=== PATIENT | male | born 1945 | race African-American/Black ===

== ENCOUNTER 2016-06-01 21:43 | Inpatient (IN) | payer MEDICARE ==
[~2016-06-01] VITALS: Ht 170.2 cm; Wt 71.4 kg
[~2016-06-01 21:43] MED LIST: CIPRO XR500 M2 PO; CIPROFLOXACN250 MG PO; CIPROFLOXACN500 MG PO; DETROL LA4 MG PO; DILAUDID 2MG2 MG/TA1 PO; DILAUDID2 MG PO; FLOMAX0.4 M1 PO; GENTAMICIN0.3 % OP; LORTAB 5 OR; MILK OF MAG30 ML/UDC PO; [UNRECOGNIZED DRUG - OTHER]
--- NOTE | 2016-06-01 22:12 | NUR ---
PT AMBULATED TO RM 9 W/ STEADY GAIT.
[2016-06-01] MEDS ORDERED: PANTOPRAZOLE SO40 MG PO (22:21)
[2016-06-01] MEDS ORDERED: AUGMENTIN875TAB PO (22:22)
[2016-06-01] MEDS ORDERED: IBUPROFEN600 MG PO (22:23)
--- NOTE | 2016-06-01 22:45 | NUR ---
PT STATES HE WENT TO DR ESTRADA'S OFFICE YESTERDAY AND WAS GIVEN A SHOT FOR PUS IN HIS THROAT AND THROAT PAIN. STATES IT WAS AN ANTIBIOTIC SHOT.
--- NOTE | 2016-06-01 23:06 | NUR ---
PT MEDICATED FOR C/O ACID REFLUX ORDERED.
[2016-06-01] MEDS ORDERED: BENADRYL 50MG C50 MG PO (23:07)
--- NOTE | 2016-06-02 00:01 | NUR ---
CARDIAC WORKUP INITIATED. PATIENT HAS NO COMPLAINTS AT THIS TIME.
[2016-06-02 00:53] LABS: HEMATOCRIT 42.9 % (39.0-50.0); HEMOGLOBIN 14.2 g/dl (14.0-18.0); IMMATURE GRANULOCYTES 0.5 % (0.0-1.0); MEAN CELL VOLUME 86.3 fL CALC (80.0-100.0); MEAN CORPUSCULAR HGB 28.6 pG CALC (26.0-32.0); MEAN CORPUSCULAR HGB CONC 33.1 g/L CALC (32.0-36.0); NEUT# 7.96 thou/uL (1.82-7.42); RED BLOOD COUNT 4.97 mill/uL (4.70-6.10); RED CELL DISTRI WIDTH 13.8 % (11.5-15.5)
[2016-06-02 01:13] LABS: ALBUMIN 4.1 g/dL (3.2-5.0); ALKALINE PHOSPHATASE 78 u/l (38-126); AMYLASE 97 u/l (30-110); ANION GAP 17 (6-22 (CALC)); BILIRUBIN, TOTAL 0.7 mg/dL (0.0-1.4); BUN 13 mg/dL (8-23); BUN/CREATININE RATIO 10 (12-20 (CALC)); CALCIUM 9.2 mg/dL (8.4-10.2); CARBON DIOXIDE 27 mmol/l (22-30); CHLORIDE 97 mmol/l (95-108); CREATININE 1.3 mg/dL (0.7-1.3); GFR 55 ML/MIN (>=60 (CALC)); GFR FOR AFR.AMER. > 60 ML/MIN (>=60 (CALC)); GLUCOSE 99 mg/dL (82-115); LIPASE 64 u/l (23-300); POTASSIUM 4.1 mmol/l (3.5-5.1); SGOT/AST 34 u/l (19-48); SGPT/ALT 37 u/l (11-66); SODIUM 138 mmol/l (137-146); TOTAL PROTEIN 7.7 g/dL (6.3-8.2)
[2016-06-02 01:24] LABS: ACT PARTIAL THROMBO TIME 31.5 SECONDS (20.0-32.5); MYOGLOBIN 104 ng/mL (0 - 121); PROTHROMBIN TIME 10.8 SECONDS (9.0-12.5)
--- NOTE | 2016-06-02 02:12 | NUR ---
SLEEPING SOUNDLY. VSS. CM NSR WITH OCCASIONAL UNIFOCAL VPC. 1ST TROPONIN NEGATIVE.
--- NOTE | 2016-06-02 04:00 | NUR ---
PATIENT AWARE THAT HE IS BEING ADMITTED. EXPLAINED THAT HE IS GOING TO THE ICU AN OVERFLOW PATIENT
--- NOTE | 2016-06-02 04:12 | NUR ---
REPORT GIVEN TO [facility] ON ICU. TRANSPORTED TO ICU ON [facility] WITH CM, PATENT IV LINE IN THE LEFT AC, BY KARLO LUNA.
[2016-06-02 04:20] VITALS: BP 118/65
--- NOTE | 2016-06-02 04:20 | NUR ---
male pt received to ICU bed 4 (MS winn) in stable condition; ambulatory to scale then bed with weak/unsteady gait; admission assessment completed at this time; pt c/c rash and epigastric pain; deny n/v/ diaphoresis; pt also complaints of throat pain; pt states he started on motrin and "acid reflux" medication when rash started; pt also noted to have started Augmentin 06/01/16; a&o X3; denies pain/chest pain; resp even and unlabored; lungs clear; ra; skin color wnl; hr reg; strong pulses; no edema noted; sr on monitor; bilat knee high radha hose placed; abd soft with bs present; pt states last bm 06/01/16; admits to decreased appetite; pt voiding clear shagufta urine without complication; ua specimen obtained; #20 in lac flushed and patent; no redness or edema noted at site; generalized raised rash noted to upper body/arms/back/torso; pt denies itching; temp current 103.4; pt noted with shiver/complaints of being cold; redness noted to post throat; airway patent; plan of care explained; pt oriented to bed and call light system; will continue to monitor closely
--- NOTE | 2016-06-02 05:05 | NUR ---
medictaed with tylenol for temp of 103.4; po fluids encouraged; spouse at bedside; will continue to monitor
[2016-06-02 05:57] LABS: URINE BILIRUBIN - DIPSTICK NEGATIVE (NEGATIVE); URINE BLOOD DIPSTICK LARGE (NEGATIVE); URINE CLARITY CLEAR; URINE COLOR YELLOW; URINE GLUCOSE - DIPSTICK NEGATIVE (NEGATIVE); URINE KETONE NEGATIVE (NEGATIVE); URINE LEUK ESTERASE NEGATIVE (NEGATIVE); URINE NITRITE - DIPSTICK NEGATIVE (Negative); URINE PH 5.5 (4.5-8.0); URINE PROTEIN - DIPSTICK NEGATIVE (NEG-TRACE); URINE UROBILINOGEN - DIPSTICK 0.2 E.U./dL (0.2)
--- NOTE | 2016-06-02 06:02 | NUR ---
resting in bed with eyes closed; spose remains at bedside; no distress noted; iv intact; sr on monitor; bed in lowest position; will continue to monitor
--- NOTE | 2016-06-02 06:20 | NUR ---
Dr Rowan informed of current temp of 103.1; orders received to place ice packs; this database report writer informed , pt states he started Protonix and Motrin on Tue, pt states rash started after starting Protonix and Motrin. pt received an injection on Tue at Dr Timmons's office (pt unsure of name) and started Augmentin on Tue;
[2016-06-02 06:23] LABS: URINE BACTERIA RARE hpf; URINE MUCUS FEW hpf (NONE-FEW)
--- NOTE | 2016-06-02 07:20 | NUR ---
PT ALERT AND ORIENTED, RESTING IN BED, AM ASSESSMENT COMPLETED, SEE INTERVENTIONS, PT COMPLAINTS OF PRICKLY FEELING TO BACK RELATED TO RASH THAT STARTED ON TUESDAY AFTER NEW MEDICATIONS, SEE HISTORY. DENIES N/V BUT STATES APPETITE FAIRLY POOR FOR LAST FEW DAYS, AT BEDSIDE, TELE READING SR IN THE 70'S WITH PVC'S PT REMAINS FEBRIEL BUT IMPROVED CURRENTLY TEMP IS 100.7, CALL [facility] WITHIN REACH, SAFEY MEASURES REINFORCED, URINAL AT BEDSIDE, WILL CONTINUE TO MONITOR, ENCOUARGED TO CALLFOR ANY NEEDED ASSISTANCE
[2016-06-02 08:00] VITALS: BP 96/56
--- NOTE | 2016-06-02 08:30 | NUR ---
PT REMAINS RESTING IN BED, OFFERS NO NEW COMPLAINTS TEMP REMAINS 100.7, REMAINS AT BEDSIDE, WILL CONTINUE TO MONITOR,
--- NOTE | 2016-06-02 08:56 | NUR ---
PT ATE MINIMAL AMOUNT OF AM MEAL, CALL [facility] WITHIN REACH, WILL CONTINUE TO MONITOR.
--- NOTE | 2016-06-02 10:34 | NUR ---
PT CALLED THIS NURSE ASKING QUESTIONS ABOUT CT SCAN THAT WAS SCHEDULED OP FOR THIS AM (PRIOR TO BEING ADMITTED) PT STATES THAT HE HAS "KNOTS" AT BASE OF EACH EAR THAT ARE SORE TO TOUCH AND TENDER AND HAVE CRISTAL BOTHERING HIM SINCE LAST WEEK (WHICH IS WHAT STARTED ALL OF THE DOCTOR VISITS MEDICATIONS AND SUBSEQUENT QUESTIONABLE ALLERGIC REACTION TO MEDICATIONS PROVIDED), HE STATES WANTED TO DO A CT SCAN WITH CONCERNS OF STONES IN HIS PAROTID GLANDS NOTIFIED OF ALL OF THIS AND CT ORDERED, PT AWARE AND WILL CONTINUE TO MONITOR.
--- NOTE | 2016-06-02 10:51 | NUR ---
PT RESTING IN BED, CALL FROM RADIOLOGY FOR CT SCAN. AWAITING TRANSPORT
--- NOTE | 2016-06-02 11:05 | NUR ---
PT TO CT VIA WHEELCHAIR
[2016-06-02 11:28] VITALS: BP 117/58
--- NOTE | 2016-06-02 11:32 | NUR ---
PT BACK FROM CT BACK TO BED, TYMPANIC TEMP NOW 104.1 , ICE PACKS APPLIED TO AXIALLRY AND ALBERTO WET CLOTH TO FORHEAD, PT HR REMAINS STABLE AT 87, BP 117/58 ALSO MEDICATED WITH TYLENOL ORDERED, WILL MONITOR CLOSELY
--- NOTE | 2016-06-02 12:05 | NUR ---
PT RESTING IN BED, REMAINS AT BEDSIDE, IVF CONTINUE AT PRESCRIBED RATE, SET UP ASSIST PROVIDED FOR AFTERNOON MEAL EARLIER ORDERED, WILL CONTINUE TO MONITOR. CALL [facility] WITHIN REACH
--- NOTE | 2016-06-02 12:31 | NUR ---
TEMP CURRENTLY 101.8, ICE PACKS REMAIN IN PLACE, VISITORS AT BEDSIDE, WILL CONTINUE TO MONITOR.
--- NOTE | 2016-06-02 12:36 | NUR ---
MEDICATED WITH BENADRYL FOR COMPLAINTS OF PRICKLY/TINGLING FEELING TO BACK, NASO SWAB DONE FOR INFLUENZA SCREENING, PT TOELRATED WELL WILL CONTINUE TO MONITOR
[2016-06-02 13:01] LABS: INFLUENZA A NONE DETECTED (NONE DETECT); INFLUENZA B NONE DETECTED (NONE DETECT)
--- NOTE | 2016-06-02 13:17 | NUR ---
S: MACARIO MEJIA is a 70 M who presents with fever, rash, and chest pain All medications in patient's chart were reviewed. O: VS: BP 117/58, P 88, RR 27 ,T 101.8, Tmax 104.3 W 71.35kg, HT 67", Scr= 1.3,CrCl= ~53 ml/min A: Blood cultures are pending Group A Strep, Influenza A & B and Monoscreen are all negative. P: Patient has been started on aztreonam 1g IV Q8H, Levofloxacin 750mg IV Q24H and [facility], pharmacy to dose. Start Vancomycin 750mg IV Q12H @ 0400,1600. Vancomycin trough to be drawn on 06/04/16 @ 0330, 30 minutes prior to the fourth dose. Vancomycin goal trough is between 10-20 mcg/ml. Pharmacy will follow and or advise on antibiotics use as needed. Thank you for the consult. Rosa Isela Willett, CrystalD
--- NOTE | 2016-06-02 13:29 | NUR ---
PT HAS 3 ABT ORDERED, PT EDUCATED REGARDING EACH ONE INCLDUING REASON FOR ADMINISTRTAION, EXPECTATIONS AND POSSIBLE SIDE EFFECTS, PT AND SPOUSE VERBALIZE UNDERSTANDING
--- NOTE | 2016-06-02 15:14 | NUR ---
TEMP 97.8, REMAINS AT BEDSIDE, OFFERS NO NEW COMPLAINTS, TOLERATED LEVAQUIN W/O INCIDENT, CALL [facility] WITHIN REACH
[2016-06-02 16:00] VITALS: BP 97/52
--- NOTE | 2016-06-02 16:45 | NUR ---
PT DIAPHORTECI RELATED TO FEVER BREAKING, PT OOB TO CHAIR AT BEDSIDE, COMPLETE LINEN CHANGE COMPLETED, PT BATHED SELF WHILE SITTING UP WITH MIN ASSIST, PT TOLERATED ACTIVITY WELL. CALL [facility] WITHIN REACH.
--- NOTE | 2016-06-02 17:38 | NUR ---
PT REMAINS SITTING UP IN RECLINER SET UP ASSIST PROVIDED FOR PM MEAL, REMAINS AT BEDSIDE, CALL [facility] WITHIN REACH, WILL CONTINUE TO MONITOR.
--- NOTE | 2016-06-02 17:42 | NUR ---
PT REMAINS AFEBRILE, TEMP 97.6, WILL CONTINUE TO MONITOR
--- NOTE | 2016-06-02 18:11 | NUR ---
VISITORS AT BEDSIDE, OFFERS NO NEW COMPLAINTS, SAFETY MEASURES REINFORCED, WILL CONTINUE TO MONITOR.
--- NOTE | 2016-06-02 19:00 | NUR ---
REPORT FROM CHERYL MON. ASSUMED PT. CARE.
[2016-06-02 20:00] VITALS: BP 105/63
--- NOTE | 2016-06-02 20:00 | NUR ---
PT. FOUND SITTING IN CHAIR AT BEDSIDE. ASSISTED BACK TO BED PER HIS REQUEST. REMAINS AFEBRILE AT THIS TIME 97.1. AWAKE, ALERT, ORIENTED. SPOUSE AT BEDSIDE. RESPS EVEN AND UNLABORED. SKIN WARM AND DRY. DENIES COMPLAINTS OF PAIN OR NEED. VSS.
--- NOTE | 2016-06-02 21:57 | NUR ---
PT. RESTING IN BED WITH EYES CLOSED. GOWN CHANGED PT. HAD SOME DIFFICULTY WITH URINAL. PT. DENIES COMPLAINTS OF PAIN OR NEED. VSS. WILL CONTINUE TO MONITOR.
--- NOTE | 2016-06-02 23:30 | NUR ---
PT. RESTING IN BED WITH EYES CLOSED. SPOUSE REMAINS AT BEDSIDE AT THIS TIME. RESPS EVEN AND UNLABORED. NO DISTRESS NOTED.
[2016-06-03] VITALS: BP 121/73
--- NOTE | 2016-06-03 00:45 | NUR ---
PT. PROVIDED WITH ANOTHER BLANKET PER HIS REQUEST. PT. IS AWAKE, ALERT, ORIENTED X 3. SKIN WARM AND DRY. AFEBRILE AT THIS TIME. URINAL EMPTIED OF APPROX 300 CC ESTEVAN COLORED URINE. VSS.
--- NOTE | 2016-06-03 02:35 | NUR ---
PT. RESTING IN BED WITH EYES CLOSED. DENIES COMPLAINTS OR NEEDS. RESPS ARE EVEN AND UNLBAORED. PT. SPOUSE REMAINS AT BEDSIDE AT THIS TIME. VSS.
--- NOTE | 2016-06-03 03:55 | NUR ---
LAB AT BEDSIDE TO DRAW PT. PT. REMAINS AFEBRILE AT THIS TIME. BP 100/50. STABLE. DENIES COMPLAINTS OF PAIN OR NEED. RESPS EVEN AND UNLABORED. HR STABLE AT 65. SPOUSE REMAINS AT BEDSIDE AT THIS TIME.
[2016-06-03 04:00] VITALS: BP 100/56
[2016-06-03 04:21] LABS: HEMATOCRIT 37.6 % (39.0-50.0); HEMOGLOBIN 12.7 g/dl (14.0-18.0); IMMATURE GRANULOCYTES 0.8 % (0.0-1.0); MEAN CELL VOLUME 85.5 fL CALC (80.0-100.0); MEAN CORPUSCULAR HGB 28.9 pG CALC (26.0-32.0); MEAN CORPUSCULAR HGB CONC 33.8 g/L CALC (32.0-36.0); NEUT# 11.62 thou/uL (1.82-7.42); RED BLOOD COUNT 4.4 mill/uL (4.70-6.10); RED CELL DISTRI WIDTH 14.1 % (11.5-15.5)
[2016-06-03 04:33] LABS: ANION GAP 13 (6-22 (CALC)); BUN 18 mg/dL (8-23); BUN/CREATININE RATIO 22 (12-20 (CALC)); CALCIUM 8.7 mg/dL (8.4-10.2); CARBON DIOXIDE 25 mmol/l (22-30); CHLORIDE 106 mmol/l (95-108); CREATININE 0.8 mg/dL (0.7-1.3); GFR > 60 ML/MIN (>=60 (CALC)); GFR FOR AFR.AMER. > 60 ML/MIN (>=60 (CALC)); GLUCOSE 130 mg/dL (82-115); POTASSIUM 4.3 mmol/l (3.5-5.1); SODIUM 139 mmol/l (137-146)
--- NOTE | 2016-06-03 05:27 | NUR ---
IV VANCO CONTINUES TO INFUSE WITHOUT SX OF INFILTRATION OR EXTRAVASATION. RESTING IN BED WITH EYES CLOSED. DENIES COMPLAINTS OF PAIN OR NEED. VSS. RESPS EVEN AND UNLABORED. SKIN WARM AND DRY. CALL LIGHT WITHIN REACH.
--- NOTE | 2016-06-03 07:15 | NUR ---
PT ALERT AND ORIENTED, RESTING IN BED, AM ASSESSMENT COMPLETED, SEE INTERVENTIONS, PT STATES PRICKLY FEELING TO BACK RELATED TO RASH IMPROVED OVER YESTERDAY, STATES INGENEREAL FEELING MUCH BETTER THAN YESTERDAY, REMAINS AFEBRILE (97.6) WITH VS STABLE, TELE READING SR IN THE 60-70'S, CALL [facility] WITHIN REACH, SAFEY MEASURES REINFORCED, URINAL AT BEDSIDE, WILL CONTINUE TO MONITOR, ENCOURAGED TO CALL FOR ANY NEEDED ASSISTANCE, SPOUSE REMAINS AT BEDSIDE, PLAN OF CARE DISCUSSED AND ALL QUESTIONS ANSWERED.
[2016-06-03 07:35] VITALS: BP 120/71
--- NOTE | 2016-06-03 07:40 | NUR ---
SET UP ASSIST PROVIDED FOR AM SANYA, REMAINS AT BEDSIDE, PT VOIDS ADEQUATE AMOUNTS CLEAR ESTEVAN URINE, WILL CONTINUE TO MONITOR.
--- NOTE | 2016-06-03 09:37 | NUR ---
PT REMAINS RESTING IN BED, IVF CONTINUE AT PRESCRIBED RATE, OFFERS NO NEW COMPLAINTS, CALL MOOKIE JUNIOR, REMAINS AT BEDSIDE, WILL CONTINUT TO MONITOR.
--- NOTE | 2016-06-03 09:55 | NUR ---
IN TO SEE PATIENT
--- NOTE | 2016-06-03 10:53 | NUR ---
VISITORS AT BEDSIDE, PT REMAINS AFEBRILE & RESTING IN BED, IVF CONTINUE, CALL [facility] WITHIN REACH,
--- NOTE | 2016-06-03 12:17 | NUR ---
PT SET UP ASSIST PROVIDED FOR AFTERNOON MEAL EARLIER, TOLERATING DIET WELL, REPOSITIONS SELF IN BED FOR COMFORT WITH NO DISTRESS NOTED, VS REMAIN STABEL AND PT REMAINS AFEBRILE, WILL CONTINUE TO MONITOR
[2016-06-03 12:18] VITALS: BP 116/64
--- NOTE | 2016-06-03 14:00 | NUR ---
PT SITS UP ON EDGE OF BED INDPENDENTLY TO VISIT WITH FAMILY, NO SOB OR DISTRESS NOTED, PT STATES FEELING MUCH BETTER TODAY, AWARE OF PLANNED D/C TODAY, CALL [facility] WITHIN REACH, WILL CONTINUE TO MONITOR.
[2016-06-03] MEDS ORDERED: PREDNISONE20 MG PO (14:30)
[2016-06-03] MEDS ORDERED: LEVAQUIN750 MG PO (14:30)
[2016-06-03] MEDS ORDERED: BENADRYL 25MG C25 MG PO (14:30)
--- NOTE | 2016-06-03 15:15 | NUR ---
IV SITE REMOVED INTACT, PT GETTING DRESSED WITH AT BEDSIDE
--- NOTE | 2016-06-03 15:26 | NUR ---
Discharge instructions given. Patient verbalizes understanding of same. Discharged in stable condition via Wheelchair to Home with spouse. All belongings sent with pt. SCRIPTS FOR MEDICATIONS GIVENTO PT SPOUSE.
== END 2016-06-03 15:30 | disposition home or self-care (01) | DRG 607 ==
LOC: ENPENDDIS → ED 21:43 → ED-I 06-02 03:20 → ED 06-02 03:29 → ICU 06-02 03:30
PROVIDERS: Emergency Medicine; ADMIT Internal Medicine; ATTEND Internal Medicine
DX: L27.0 Generalized skin eruption due to drugs and medicaments taken internally (principal); R50.9 Fever, unspecified; J03.90 Acute tonsillitis, unspecified; T39.315A Adverse effect of propionic acid derivatives, initial encounter; T36.0X5A Adverse effect of penicillins, initial encounter; T47.1X5A Adverse effect of other antacids and anti-gastric-secretion drugs, initial encounter; R07.9 Chest pain, unspecified; N40.0 Benign prostatic hyperplasia without lower urinary tract symptoms
CPT/HCPCS: J3370

== ENCOUNTER 2019-10-22 01:06 | Emergency (ER) | payer MEDICARE ==
[~2019-10-22] VITALS: Ht 167.6 cm; Wt 70.0 kg
[~2019-10-22 01:06] MED LIST changes: +AUGMENTIN875TAB PO; +BENADRYL 25MG C25 MG PO; +BENADRYL 50MG C50 MG PO; +IBUPROFEN600 MG PO; +LEVAQUIN750 MG PO; +PANTOPRAZOLE SO40 MG PO; +PREDNISONE20 MG PO
[2019-10-22] MEDS ORDERED: BACTRIM DS1 TAB PO (01:30)
[2019-10-22 01:52] VITALS: BP 151/76
== END 2019-10-22 01:51 | disposition home or self-care (01) ==
LOC: ED 01:06
DX: N45.2 Orchitis (principal)

== ENCOUNTER 2024-04-11 03:42 | Emergency (ER) | payer MEDICARE ==
[~2024-04-11] VITALS: Ht 167.6 cm; Wt 75.0 kg
[~2024-04-11 03:42] MED LIST changes: +BACTRIM DS1 TAB PO; +PYRIDIUM200 MG PO; +TRAMADOL HCL50 MG PO
[2024-04-11 03:56] VITALS: BP 137/77
[2024-04-11 04:00] VITALS: BP 123/76
[2024-04-11] MEDS ORDERED: SODIUM CHLORIDE 0.9% 1,000 ML IV ONE (04:00)
[2024-04-11] MEDS ORDERED: ONDANSETRON HCl 4 MG/2 ML SDV IV ONE (04:00)
[2024-04-11 04:31] VITALS: BP 139/71
[2024-04-11 04:43] LABS: BASO% 0.1 % (0-3); EOS% 0.3 % (0-8); HEMATOCRIT 45.4 % (39.0-50.0); HEMOGLOBIN 14.2 g/dl (14.0-18.0); IMMATURE GRANULOCYTES 0.1 % (0.0-5.0); LYMPH% 3.3 % (15-41); MEAN CELL VOLUME 93.6 fL CALC (80.0-100.0); MEAN CORPUSCULAR HGB 29.3 pG CALC (26.0-32.0); MEAN CORPUSCULAR HGB CONC 31.3 g/dL CAL (32.0-36.0); MONO% 4.4 % (2-13); NEUT# 6.62 thou/uL (1.82-7.42); NEUT% 91.8 % (42-76); RED BLOOD COUNT 4.85 mill/uL (4.70-6.10); RED CELL DISTRI WIDTH 13.6 % (11.5-15.5)
[2024-04-11 05:00] VITALS: BP 147/82
[2024-04-11 05:02] LABS: ALBUMIN 4.4 g/dL (3.2-5.0); BILIRUBIN, TOTAL 1.5 mg/dL (0.2-1.3); TOTAL PROTEIN 7.3 g/dL (6.3-8.2)
[2024-04-11] MEDS ORDERED: ONDANSETRON4 MG PO (05:09)
[2024-04-11 05:25] VITALS: BP 147/82
== END 2024-04-11 05:25 | disposition home or self-care (01) ==
LOC: ED 03:42
PROVIDERS: Family Medicine
DX: R10.9 Unspecified abdominal pain (principal); R11.2 Nausea with vomiting, unspecified
CPT/HCPCS: J2405